=== PATIENT | female | born 1965 | race Caucasian/White ===

== ENCOUNTER → 2020-03-28 15:10 | Outpatient (CLI) | payer BC, OTHER, SELFPAY ==
--- NOTE | ~2020-03-28 | US_ITS ---
EXAMINATION: US transvaginal EXAM DATE: 03/28/2020 16:02 INDICATION: Possible, excessive bleeding. Left oophorectomy. TECHNIQUE: Pelvic transvaginal sonogram was performed. There are multiple grayscale and Doppler imag es available for interpretation. Comparison is made to prior examination from 04/03/2010. FINDINGS: There is been interval hysterectomy. The vaginal cuff is unremarkable. There is no free pel laura fluid. Right adnexa: The ovary measures 1.2 x 0.9 x 1.4 cm and is morphologically normal. Ovarian vascular f low confirmed. Left adnexa: The ovary is not identified. There is no adnexal mass. IMPRESSION: 1. Unremarkable right ovary. Reviewed, dictated and finalized at location A.
== END ==
PROVIDERS: PCP Family Medicine
DX: N95.1 Menopausal and female climacteric states (principal)
CPT/HCPCS: 76830

== ENCOUNTER → 2020-04-26 10:41 | Outpatient (CLI) | payer BC, OTHER, SELFPAY ==
--- NOTE | ~2020-04-26 | US_ITS ---
EXAMINATION: US soft tissue head and neck DATE: 04/26/2020 11:01 INDICATION: Localized swelling, mass and lump at the left neck TECHNIQUE: Multiple grayscale and Doppler ultrasound images of the region of concern at the left neck were obtained. COMPARISON: None FINDINGS: Lesion of concern corresponds to a 8 x 7 x 6 mm anechoic cyst with posterior acoustic enhancement. Th ere appears be a subtle hypoechoic tract extending from the cystic the skin surface which could be mo st consistent with an epidermoid cyst. No other abnormal masses or fluid collections identified. IMPRESSION: 1. 8 mm epidermoid cyst at the region of concern. Reviewed, dictated and finalized at location B.
== END ==
PROVIDERS: PCP Nurse Practitioner Family; Visit Provider Nurse Practitioner Family
DX: R22.1 Localized swelling, mass and lump, neck (principal)
CPT/HCPCS: 76536

== ENCOUNTER 2020-05-16 13:38 | Outpatient (CLI) | payer BC, OTHER, SELFPAY ==
[2020-05-16 14:22] LABS: Basophils Percent Auto 0.3 % (0.2-1.2); Eosinophils Absolute Auto 0.1 K/mm3 (0-0.3); Hematocrit 36.7 % (37.0-47.0); Hemoglobin 12.1 g/dL (12.0-15.0); Immature Granulocyte Absolute 0.01 K/mm3 (0.00-0.031); Immature Granulocyte Percent A 0.2 % (0-0.5); Lymphocytes Absolute Auto 1.67 K/mm3 (0.9-3.2); Lymphocytes Percent Auto 28.5 % (18.3-44.2); Mean Corpuscular Hemoglobin 32.8 pg (26-34); Mean Corpuscular Volume 99.5 fl (80-100); Monocytes Absolute Auto 0.5 K/mm3 (0.1-0.6); Monocytes Percent Auto 9.2 % (2.6-8.5); Neutrophils Absolute Auto 3.6 K/mm3 (1.3-6.7); Neutrophils Percent Auto 60.8 % (45.5-73.1); Platelet Count Result 247 k/mm3 (150-375); Red Blood Count 3.69 M/mm3 (4.2-5.4); Red Cell Distribution Width 12.3 % (11.5-14.5); White Blood Count 5.9 K/mm3 (4.5-10.0)
[2020-05-16 14:33] LABS: Anion Gap 4 mmol/L (8-16); Blood Urea Nitrogen 13 mg/dL (7-17); Calcium 9.2 mg/dL (8.4-10.2); Carbon Dioxide 28 mmol/L (22-30); Chloride 102 mmol/L (98-107); Estimated Glomerular Filt Rate > 60; Glucose 92 mg/dL (65-105); Potassium 4.3 mmol/L (3.4-5.0); Sodium 134 mmol/L (137-145)
[2020-05-16 15:24] LABS: Free T4 Free Thyroxine 0.85 ng/mL (0.78-2.19)
== END 2020-05-16 13:39 | disposition home or self-care (01) ==
LOC: ANHLAB 13:40
PROVIDERS: PCP Nurse Practitioner Family; Visit Provider Nurse Practitioner Family
DX: R00.2 Palpitations (principal)
CPT/HCPCS: 36415; 80048; 84439; 84443; 85025

== ENCOUNTER 2020-05-17 13:17 | Outpatient (CLI) | payer BC, OTHER, SELFPAY ==
--- NOTE | 2020-05-17 13:35 | ECG_ITS ---
Measurements Intervals [place] Rate: 48 P: 64 [place]: 151 QRS: 79 QRSD: 87 T: 59 QT: 452 QTc: 406 Interpretive Statements SINUS BRADYCARDIA WITH SINUS ARRHYTHMIA ABNORMAL ECG Electronically Signed On 05-17-2020 20:12:32 CDT by Rao Owens D.O.
== END 2020-05-17 13:18 | disposition home or self-care (01) ==
PROVIDERS: PCP Nurse Practitioner Family; Visit Provider Nurse Practitioner Family
DX: R00.2 Palpitations (principal); R94.31 Abnormal electrocardiogram [ECG] [EKG]
CPT/HCPCS: 93005

== ENCOUNTER → 2020-05-24 12:49 | Outpatient (CLI) | payer BC, OTHER, SELFPAY ==
--- NOTE | ~2020-05-24 | US_ITS ---
EXAMINATION: US thyroid DATE: 05/24/2020 13:04 INDICATION: Localized swelling, mass, and lump, neck. TECHNIQUE: Multiple ultrasound images of the thyroid were obtained. COMPARISON: None. FINDINGS: The right thyroid lobe measures 5.8 x 1.5 x 2.0 cm. The left thyroid lobe measures 5.5 x 1.1 x 1.6 c m. There is normal echotexture and echogenicity throughout the thyroid gland. No discrete nodules id entified. Normal vascular flow is present. IMPRESSION: 1. Normal thyroid. Reviewed, dictated and finalized at location A. IMPRESSION: 1. Normal thyroid.
== END ==
PROVIDERS: Visit Provider Nurse Practitioner Family
DX: R22.1 Localized swelling, mass and lump, neck (principal)
CPT/HCPCS: 76536

== ENCOUNTER 2020-05-29 08:42 | Outpatient (CLI) | payer BC, OTHER, SELFPAY ==
--- NOTE | 2020-05-31 12:05 | WPDHOLTEREM ---
Holter/Event Monitor Holter/Event Monitor Date of procedure: 05/29/20 Procedure Type: 24 hour holter monitor Indications: Abnormal EKG Conclusion: 1. 24 hour holter monitor on 05/29/20. 2. Underlying rhythm is sinus rhythm. HR range 42-138 bpm; average HR 72 bpm. 3. There are 1,043 premature supraventricular complexes, 3 supraventricular couplets, and 1 supraventricular triplet, 3 supraventricular bigeminy and 15 supraventricular trigeminy. No supraventricular tachycardia. 4. There are 432 premature ventricular complexes, 2 ventricular couplets, 2,107 ventricular bigeminy. No ventricular tachycardia. 5. No sinoatrial or atrioventricular blocks. No significant pauses greater than 2 seconds. 6. No symptoms available for correlation.
== END 2020-05-29 08:43 | disposition home or self-care (01) ==
PROVIDERS: PCP Nurse Practitioner Family; Visit Provider Physician Assistant Medical
DX: R94.31 Abnormal electrocardiogram [ECG] [EKG] (principal); R00.2 Palpitations; I49.3 Ventricular premature depolarization; R00.8 Other abnormalities of heart beat
CPT/HCPCS: 93225; 93226

== ENCOUNTER 2020-06-12 13:45 | Outpatient (CLI) | payer BC, OTHER, SELFPAY ==
--- NOTE | ~2020-06-12 | DEXA_ITS ---
Bone Density Report Name: Noemi Juárez Age: 54 Sex: Female Ethnicity: White Date of : 1965 Indication: osteopenia; monitoring treatment; prior fracture; hysterectomy; Referring Provider: Kamala Steiner Study: Bone densitometry was performed. Exam Date: June 12, 2020 Accession number: [id number] Bone Density: Region BMD T-score Z-score Classification AP Spine (L1, L2, L3) 0.867 -1.4 -0.5 Osteopenia Femoral Neck (Left) 0.685 -1.5 -0.6 Osteopenia Total Hip (Left) 0.849 -0.8 -0.2 Normal Total Hip Bilateral Avg 0.844 -0.8 -0.3 Normal Femoral Neck (Right) 0.673 -1.6 -0.7 Osteopenia Total Hip (Right) 0.838 -0.9 -0.3 Normal World Health Organization criteria for BMD impression classify patients as: Normal (T-score at or above -1.0), Osteopenia (T-score between -1.0 and -2.5), or Osteoporosis (T-score at or below -2.5). 10-year Fracture Risk: FRAX not reported because: Treated for osteoporosis Previous Exams: Region Exam Age BMD T-score BMD Change BMD Change Date g/cm2 vs Baseline vs Previous AP Spine(L1, L2, L3) 06/12/2020 54 0.867 -1.4 0.029(3.5%)# 0.061(7.6%)* 06/16/2018 52 0.806 -1.9 -0.032(-3.8%)# -0.026(-3.1%)* 06/05/2016 50 0.831 -1.7 -0.006(-0.7%)# -0.009(-1.0%) 05/31/2014 48 0.840 -1.6 0.003(0.3%)# 0.003(0.3%)# 05/19/2012 46 0.837 -1.6 Total Hip(Left) 06/12/2020 54 0.849 -0.8 0.026(3.1%)# -0.031(-3.5%)* 06/16/2018 52 0.880 -0.5 0.057(6.9%)# 0.067(8.2%)* 06/05/2016 50 0.813 -1.1 -0.010(-1.2%)# -0.040(-4.7%)* 05/31/2014 48 0.853 -0.7 0.030(3.6%)# 0.030(3.6%)# 05/19/2012 46 0.823 -1.0 Total Hip(Right) 06/12/2020 54 0.838 -0.9 0.008(0.9%)# 0.017(2.0%) 06/16/2018 52 0.821 -1.0 -0.009(-1.1%)# 0.032(4.1%)* 06/05/2016 50 0.789 -1.3 -0.041(-4.9%)# -0.032(-3.9%)* 05/31/2014 48 0.821 -1.0 -0.009(-1.1%)# -0.009(-1.1%)# 05/19/2012 46 0.830 -0.9 *Denotes significance at 95% confidence level, LSC for AP Spine = 0.022 g/cm2, LSC for Total Hip = 0.027 g/cm2 Clinical Information Provided by Patient: Has had a low trauma fracture Is being treated for osteoporosis Has used the following medications: Reclast (i.e. zoledronate), Prolia (i.e. denosumab), Vitamin D, Calcium, DEPO PROVERA Has the following medical conditions: Hysterectomy Patient maximum height was 70 Menopause Age: 49 Does not regularly consume dairy products Onset of menses at age 15 Number of children 0 Missed period for more than 6 mon
--- NOTE | ~2020-06-12 | MM_ITS ---
EXAMINATION: MM screening ross BI w trevor HISTORY: Screening mammogram TECHNIQUE: Craniocaudal and mediolateral oblique 3-D tomosynthesis images were obtained and synthetic 2-D images were generated. CAD analysis was submitted and interpreted. COMPARISON: 06/11/2019, 06/16/2018, 06/07/2017 bilateral digital screening mammogram examinations BREAST PARENCHYMAL COMPOSITION: The breasts are heterogeneously dense, which may obscure small masses . FINDINGS: Scattered bilateral benign calcifications are again noted. There is no evidence of suspicio us mass, calcification, or architectural distortion to suggest malignancy in either breast. There has been no suspicious interval change. IMPRESSION: 1. No mammographic evidence of malignancy. 2. Recommend routine screening mammography in one year. BI-RADS Category 2: Benign finding(s). Reviewed, dictated and finalized at location A.
== END 2020-06-12 13:46 | disposition home or self-care (01) ==
LOC: ANHIMG 13:47
PROVIDERS: PCP Nurse Practitioner Family; Visit Provider Nurse Practitioner Family
DX: Z12.31 Encounter for screening mammogram for malignant neoplasm of breast (principal); Z78.0 Asymptomatic menopausal state; M85.88 Other specified disorders of bone density and structure, other site; M85.852 Other specified disorders of bone density and structure, left thigh; M85.851 Other specified disorders of bone density and structure, right thigh
CPT/HCPCS: 77063; 77067; 77080

== ENCOUNTER 2020-07-04 07:22 | Outpatient (CLI) | payer BC, OTHER, SELFPAY ==
--- NOTE | 2020-07-04 07:48 | ECHO_ITS ---
Patient Info Name: Noemi Juárez Age: 54 years : 1965 Gender: Female Ht: 69 in Wt: 134 lbs BSA: 1.71 m2 HR: 74 bpm BP: 113 / 65 mmHg Technical Quality: Good Exam Date: 07/04/2020 7:56 AM Exam Location: [facility] Patient Status: Outpatient Admit Date: 07/04/2020 Staff Ordering Physician: Rao Owens DO Supervisor Decorating: Jose Martin Mcarthur RDCS, RT Attending Provider: Rao Owens DO Referring Physician: Roman THOMPSON; Exam Type: CA echo doppler color flow Study Info Indications R00.2 - Palpitations Complete two-dimensional, color flow and Doppler transthoracic echocardiogram is performed. Strain analysis performed. Summary 1. Complete two-dimensional, color flow and Doppler transthoracic echocardiogram is performed. 2. Left ventricular chamber dimension is normal. 3. Left ventricular systolic function is normal, estimated at 55-60%. 4. The left ventricular diastolic function is abnormal. 5. E/e' 12 is mildly elevated. 6. Global longitudinal strain is normal at -22.0%. 7. There is mild mitral valve regurgitation. 8. There is mild tricuspid valve regurgitation. 9. No pulmonary hypertension, estimated pulmonary arterial systolic pressure is 26 mmHg. Left Ventricle E/e' 12 is mildly elevated. Global longitudinal strain is normal at -22.0%. Left ventricular chamber dimension is normal. Left ventricular systolic function is normal, estimated at 55-60%. The left ventricular diastolic function is abnormal. Right Ventricle Right ventricular chamber dimension is normal. Right ventricular systolic function is normal. Left Atria Left atrial chamber dimension is normal. Right Atria Right atrial chamber dimension is normal. Aortic Valve The aortic valve is trileaflet. There is no aortic valve stenosis. There is no aortic valve regurgitation. Pulmonic Valve There is no pulmonic regurgitation. Mitral Valve There is no mitral valve stenosis. There is mild mitral valve regurgitation. Tricuspid Valve There is mild tricuspid valve regurgitation. No pulmonary hypertension, estimated pulmonary arterial systolic pressure is 26 mmHg. Pericardium/Pleural There is no pericardial effusion. Inferior Vena Cava Normal inferior vena cava with >50% collapse upon inspiration consistent with normal right atrial pressure, 5 mmHg. Aorta The aortic root size at the sinus of Valsalva is normal. Left Ventricular Outflow Tract Name Value Normal LVOT 2D LVOT Diameter 2.0 cm LVOT Doppler LVOT Peak Gradient 4 mmHg LVOT Mean Gradient 2 mmHg LVOT VTI 25 cm LVOT VTI/AV VTI Ratio 0.9 LVOT Stroke Volume 81 ml LVOT CO 3.2 l/min LVOT CI 1.8 l/min/m2 Mitral Valve Name Value Normal MV Doppler
== END 2020-07-04 07:23 | disposition home or self-care (01) ==
PROVIDERS: PCP Nurse Practitioner Family; Visit Provider Internal Medicine Cardiovascular Disease
DX: R00.2 Palpitations (principal); I34.0 Nonrheumatic mitral (valve) insufficiency; I36.1 Nonrheumatic tricuspid (valve) insufficiency
CPT/HCPCS: 93306

== ENCOUNTER → 2020-08-07 14:40 | Outpatient (CLI) | payer BC, OTHER, SELFPAY ==
--- NOTE | ~2020-08-07 | CT_ITS ---
EXAMINATION: CT sinus wo con DATE: 08/07/2020 14:55 INDICATION: Acute recurrent sinusitis TECHNIQUE: Computed tomography (CT) of the paranasal sinuses was performed without intravenous contra st. The dose-length product was 279.12 mGy-cm. Automated exposure control and iterative reconstructio n technique were employed. COMPARISON: None FINDINGS: No significant mucosal thickening. Mild bowing of the nasal septum to the left. Ostiomeatal units are patent. No air-fluid levels. No significant mucoperiosteal reaction. Mastoids are pneumati zed. IMPRESSION: 1. No significant paranasal sinus disease. Reviewed, dictated and finalized at location A. ANIC
== END ==
PROVIDERS: PCP Nurse Practitioner Family; Visit Provider Nurse Practitioner Family
DX: J01.90 Acute sinusitis, unspecified (principal)
CPT/HCPCS: 70486

== ENCOUNTER → 2021-01-09 10:40 | Outpatient (REF) | payer BC, OTHER, SELFPAY | LOC: ANHLAB 10:40 | PROVIDERS: PCP Family Medicine; Visit Provider Nurse Practitioner | DX: L72.0 Epidermal cyst (principal) | CPT/HCPCS: 88304 ==

== ENCOUNTER → 2021-02-10 15:49 | Outpatient (CLI) | payer BC, OTHER, SELFPAY ==
--- NOTE | ~2021-02-10 | XR_ITS ---
XR chest 2V DATE: 02/10/2021 16:06 INDICATION: Cough TECHNIQUE: 2 views COMPARISON: 12/17/2014 2 view chest FINDINGS: Bilateral hyperinflation. There is relative flattening the diaphragm and increased retroste rnal airspace. The findings suggest obstructive airways disease/COPD. Clinical correlation is advised . No pulmonary infiltrate or consolidation, pleural effusion or pulmonary vascular congestion or pneumo thorax. Normal heart size. No hilar or mediastinal enlargement. IMPRESSION: Bilateral hyperinflation suggesting obstructive airways disease No active cardiopulmonary disease Reviewed, dictated and finalized at location A.
== END ==
PROVIDERS: PCP Nurse Practitioner Family; Visit Provider Nurse Practitioner Family
DX: R05 Cough (principal); R91.8 Other nonspecific abnormal finding of lung field
CPT/HCPCS: 71046

== ENCOUNTER 2021-03-11 08:30 | Outpatient (CLI) | payer BC, OTHER, SELFPAY ==
--- NOTE | 2021-03-11 13:01 | WPDPFTINT ---
PFT Procedure Performed PFT Procedure Performed Spirometry with Pre/Post Bronchodilator Plethysmography (Lung Vol) Diffusing Cap (DLCO) Flow Vol Loop PFT Interpretation This is a pulmonary function test with pre and post-bronchodilator spirometry, plethysmography and diffusing capacity. The test was performed and results interpreted in accordance with the 2019 and 2005 ATS/ERS Task Force guidelines respectively using the Global Lung Function Initiative-2012 reference equations. Patient demonstrated good effort and cooperation. Reproducibility criteria were met. The quality of the pre bronchodilator spirometry maneuver was Grade A and post bronchodilator spirometry maneuver was Grade A. Findings: Spirometry: the contour of the inspiratory and expiratory flow tracing are normal. The pre bronchodilator FVC is 4.23 L, 102% predicted. The pre bronchodilator FEV1 is 2.97, 91% predicted. The FEV1: FVC ratio 70%. The post bronchodilator FVC is 4.32 L, representing a 2% increase. The post bronchodilator FEV1 is 3.20 L, representing an 8% increase. Plethysmography: The total lung capacity is 6.42 L, 108% predicted. The functional residual capacity is 4.13 L, 122% predicted. The residual volume is 2.19 L, 102% predicted. Diffusing capacity: The absolute diffusion capacity is 21.8, 88% predicted. The diffusing capacity corrected for alveolar volume is 3.88, 91% predicted. Impression: The spirometry is normal without evidence of an obstructive abnormality. There is no significant improvement after inhaling a single dose of albuterol. The lung volumes are normal. The diffusing capacity is normal. There are no prior studies for comparison
== END 2021-03-11 08:31 | disposition home or self-care (01) ==
PROVIDERS: PCP Nurse Practitioner Family; Visit Provider Nurse Practitioner Family
DX: R05 Cough (principal); R09.89 Other specified symptoms and signs involving the circulatory and respiratory systems
CPT/HCPCS: 94060; 94726; 94729

== ENCOUNTER 2021-04-11 05:19 | Day surgery (SDC) | payer BC, OTHER, SELFPAY ==
[2021-04-04 14:51] VITALS: BMI 17.9
--- NOTE | 2021-04-09 09:29 | PM.IMHP ---
H&P: HPI History of Present Illness Date/Time: 04/09/21 09:29 patient presents for planned surgical procedures. No change in symptoms no change in medical history. Chief Complaint: chronic sinusitis, recurrent sinusitis, nasal obstruction, nasal congestion septal deviation inferior turbinate hypertrophy Review of Systems Constitutional: Constitutional: Denies fatigue, Denies fever(s) and Denies lethargy Eyes: Eyes: Denies blurry vision and Denies change in vision ENT: Reports as per HPI Cardiovascular: Cardiovascular: Denies chest pain Respiratory: Respiratory: Denies cough Endocrine: Endocrine: Denies fatigue Hematologic/Lymphatic: Hematologic/Lymphatic: Denies easy bleeding, Denies easy bruising and Denies lymphadenopathy Allergic/Immunologic: Allergic/Immunologic: Denies seasonal rhinorrhea [facility] Past Medical History Medical History Body mass index (BMI) less than 20 COVID-19 Osteopenia Surgical History Surgical History H/O knee surgery H/O LEEP H/O removal of cyst back of neck H/O: hysterectomy History of colposcopy Hx of sinus surgery Family History Family History Father Family history of coronary artery disease Family history of heart disease in male family member before age 55 Mother Family history of thyroid disease Family history of lymphoma Sibling Family history of irritable bowel syndrome Social History Social History Smoking status: Never smoker Second hand tobacco smoke exposure: No Alcohol intake: current Drinks per week: 1 Substance use: never Substance use type: does not use Living arrangements: with family 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 Gender identity (if verbalized by the patient): Female Spiritual care concerns: No Meds Home Medications and Allergies Home Medications Medication Instructions Recorded Confirmed Type cholecalciferol (vitamin D3) 1,250 1,250 mcg PO QMWF 04/23/20 04/04/21 History mcg (50,000 unit) capsule estradiol 1 mg tablet 1 mg PO DAILY 04/23/20 04/04/21 History multivitamin,pw-gejq-qzqtmlwi 1 tablet PO DAILY 04/23/20 04/04/21 History omega-3 fatty acids 500 mg capsule 500 mg PO DAILY 04/23/20 04/04/21 History thyroid (pork) 8 mg capsule 9 mg PO DAILY cap 05/16/20 04/04/21 History vitamin B complex 1 tablet PO DAILY 08/08/20 04/04/21 History fluticasone propionate 50 1 spray INTRANASAL BID #9.9 ml 12/17/20 04/04/21 Rx mcg/actuation nasal spray,suspension azelastine 137 mcg (0.1 %) nasal 1 spray INTRANASAL Q12H #30 ml 01/14/21 04/04/21 Rx spray aerosol conjugated estrogens 0.625 mg/gram 0.625 mg VAGINAL 2XW #30 g 01/17/21 04/04/21 Rx vaginal cream albuterol sulfate 90 mcg/actuation 2 inh INHALATION Q4H PRN #8.5 g 02/10/21 04/04/21 Rx aerosol inhaler Allergies Allergy/AdvReac Type Severity Reaction Status Date / Time No Known Allergies Allergy Verified 04/04/21 14:51 Exam Const: General: cooperative, healthy appearing, comfortable, well developed and alert HENMT: Head: normal to inspection, normocephalic and atraumatic Ears: hearing grossly normal bilaterally, external ears normal, TM's normal bilaterally and EAC's normal General nose exam: Normal external nose present, Normal nares present and Other nasal findings present ( Septal deviation inferior turbinate hypertrophy) Face and sinus: normal facial exam Mouth: Yes Normal oral and palatal mucosa present, Yes lip normal, Yes tongue normal, Yes oropharynx normal and Yes moist mucous membranes Teeth and gingiva: dentition normal and gingiva normal Throat: posterior oropharynx normal, tonsils normal and uvula midline Eyes: General: appearance normal, both eyes and all related stru
[2021-04-11] VITALS (7 sets, daily range): BP systolic 93–132; BP diastolic 60–68; PULSE 40–70; RESP 16–20; TEMP 36.3; O2SAT 100; BMI 17.9
--- NOTE | 2021-04-11 07:06 | WPDHPUPDATE1 ---
History and Physical Update Update Date/Time: 04/11/21 07:06 History and Physical has been reviewed, including an updated exam of the patient. There are NO changes in the patient's condition. Risks, benefits, and alternatives have been discussed and questions answered. Patient agrees to proceed with procedure.
[2021-04-11] MEDS: LACTATED RINGERS 1,000 ML 30 ML IV CONT ×2 (08:00→10:03)
[2021-04-11] MEDS: ACETAMINOPHEN 500 MG TABLET 1000 MG PO (08:00)
--- NOTE | 2021-04-11 08:23 | WPDANESEPPF ---
Anes - Initial Pre Proc Eval Procedure: Operation Date: 04/11/21 09:00 Proposed Procedures p Image Guided Bilateral Endoscopic Maxillary Antrostomy,Bilateral Inferior Turbinectomy, - Jesse Chris MD s Septoplasty - Jesse Chris MD Date/Time: 04/11/21 08:23 Surgeon: Jesse Chris MD Pre Op Diagnosis: chronic sinusitis Patient Data Age: 55 Gender: F Height: 1.78 m Weight: 56.8 kg Allergies Allergy/AdvReac Type Severity Reaction Status Date / Time No Known Allergies Allergy Verified 04/11/21 08:17 Home Medications Medication Instructions Recorded Confirmed Type cholecalciferol (vitamin D3) 1,250 1,250 mcg PO QMWF 04/23/20 04/04/21 History mcg (50,000 unit) capsule estradiol 1 mg tablet 1 mg PO DAILY 04/23/20 04/04/21 History multivitamin,fg-ivza-qjdbrxkx 1 tablet PO DAILY 04/23/20 04/04/21 History omega-3 fatty acids 500 mg capsule 500 mg PO DAILY 04/23/20 04/04/21 History thyroid (pork) 8 mg capsule 9 mg PO DAILY cap 05/16/20 04/04/21 History vitamin B complex 1 tablet PO DAILY 08/08/20 04/04/21 History fluticasone propionate 50 1 spray INTRANASAL BID #9.9 ml 12/17/20 04/04/21 Rx mcg/actuation nasal spray,suspension azelastine 137 mcg (0.1 %) nasal 1 spray INTRANASAL Q12H #30 ml 01/14/21 04/04/21 Rx spray aerosol conjugated estrogens 0.625 mg/gram 0.625 mg VAGINAL 2XW #30 g 01/17/21 04/04/21 Rx vaginal cream albuterol sulfate 90 mcg/actuation 2 inh INHALATION Q4H PRN #8.5 g 02/10/21 04/04/21 Rx aerosol inhaler Patient hx anesthesia problems: none Family hx anesthesia problems: none [facility] Past Medical History Medical History (Updated 04/11/21 @ 08:23 by Marcial Hagen MD) Body mass index (BMI) less than 20 COVID-19 Hypothyroidism Osteopenia Surgical History Surgical History H/O knee surgery H/O LEEP H/O removal of cyst back of neck H/O: hysterectomy History of colposcopy Hx of sinus surgery Family History Family History Father Family history of coronary artery disease Family history of heart disease in male family member before age 55 Mother Family history of thyroid disease Family history of lymphoma Sibling Family history of irritable bowel syndrome Social History Social History Smoking status: Never smoker Second hand tobacco smoke exposure: No Alcohol intake: current Drinks per week: 1 Substance use: never Substance use type: does not use Living arrangements: with family 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 Questions were solicited and answers provided to the satisfaction of the patient/family/POA.
[2021-04-11] MEDS: ceFAZolin 2 GM/D5W 50 ML 2 GM/50 ML BAG IVPB (08:48)
[2021-04-11] MEDS: OXYMETAZOLINE HCL 0.05% NAS 15 ML BTL (*BKC) 1 SPRAY NASAL (09:10)
--- NOTE | 2021-04-11 10:15 | W.PM.PROC2 ---
Procedure Note - Detailed Date of Procedure 04/11/21 Pre-op Diagnosis chronic sinusitis , nasal obstruction, recirculation phenomenon, septal deviation, inferior turbinate hypertrophy Post-op Diagnosis same Procedure Performed 1. Endoscopic bilateral maxillary antrostomies 2. Endoscopic assisted septoplasty 3. Inferior turbinate reduction with outfracture, submucosal Surgeon Jesse Chris MD Placement Coordinator none Anesthesia general Indications see above Findings septal deviation inferior turbinate hypertrophy bilateral maxillary antrostomy not connected to natural os Description of Procedure the patient was correctly identified and consent was verified in the preoperative holding area. The patient was then brought to the operating room and a time-out performed. General anesthesia was induced and endotracheal tube was secured the patient's airway and taped to the left lower lip. The patient was then prepped and draped for the aforementioned procedure. Afrin-soaked pledgets were placed for 5 minutes the bilateral nasal passages then removed. Under endoscopic guided the bilateral nasal passages reviewed with the aforementioned findings noted. 10 cc 1% lidocaine with 1 100,000 parts epinephrine is injected into the bilateral nasal septum in the submucoperichondrial plane. It was also injected into the anterior portions of the inferior turbinates. A backbiter was utilized to remove the uncinate process on the bilateral previous maxillary antrostomies. Micro debrider as well as straight through cut and double ball tip probe were utilized to ensure that the connected to the natural os. A 70 degree scope was also utilized to ensure this. The left anterior portion of the middle turbinate was trimmed as it had polypoid disease tissue on it. Suction Bovie electrocautery cautery was utilized to ensure hemostasis on the left middle turbinate. A Gagandeep type incision was then performed on the left anterior nasal septum bilateral mucoperichondrial flaps were elevated and the deviated nasal septum was removed with a combination of 15 blade Kalpesh forceps and Ayaan Lomas forceps. Hemostasis was excellent. The anterior inferior turbinates were entered with a microdebrider with inferior turbinate blade this procedure was performed bilaterally. There were debrided in the sub mucoperichondrial sub mucosal plane. The bilateral inferior turbinates had polypoid tissue posteriorly this was debrided and cauterized with suction Bovie electrocautery at a setting of 15. The bilateral inferior turbinates were then outfractured. Hemostasis was excellent. The [place] incision on the nasal septum was closed with 3 interrupted 5 0 fast gut sutures. Curtis splints were placed under endoscopic guidance and ensured to lie lateral to the middle turbinates. These were sutured anteriorly using a 3-0 mattressed nylon suture. Care the patient was turned over to Anesthesiology. I performed all dictated portions of this procedure. Blood loss approximately 5 cc. There were no complications. Implants Curtis splints Estimated Blood Loss 5 Drains No Packing No Pathology none sent Complications No immediate complications Condition stable Disposition PACU
== END 2021-04-11 12:15 | disposition home or self-care (01) ==
PROVIDERS: PCP Nurse Practitioner Family; Visit Provider Otolaryngology
PROC: (CPT 30520; principal; 2021-04-11 09:00)
PROC: (CPT 30520; 2021-04-11 09:00)
DX: J32.9 Chronic sinusitis, unspecified (principal); J34.89 Other specified disorders of nose and nasal sinuses; J34.2 Deviated nasal septum; J34.3 Hypertrophy of nasal turbinates; E03.9 Hypothyroidism, unspecified; Z86.16 Personal history of COVID-19
CPT/HCPCS: 30520; 31256; 30140; A9270; J0330; J0690; J2250; J2270; J2405; J2704; J7120

== ENCOUNTER 2021-06-16 10:30 | Outpatient (CLI) | payer BC, OTHER, SELFPAY ==
--- NOTE | ~2021-06-16 | MM_ITS ---
EXAMINATION: MM screening ross BI w trevor HISTORY: Screening mammogram TECHNIQUE: Craniocaudal and mediolateral oblique 3-D tomosynthesis images were obtained and synthetic 2-D images were generated. CAD analysis was submitted and interpreted. COMPARISON: 06/12/2020, 06/21/2019, 06/16/2018 bilateral digital screening mammogram examinations BREAST PARENCHYMAL COMPOSITION: The breasts are extremely dense, which lowers the sensitivity of mamm ography. FINDINGS: Numerous scattered bilateral benign calcifications are again noted. There is no evidence of suspicious mass, calcification, or architectural distortion to suggest malignancy in either breast. There has been no suspicious interval change. IMPRESSION: 1. No mammographic evidence of malignancy. 2. Recommend routine screening mammography in one year. BI-RADS Category 2: Benign finding(s). Reviewed, dictated and finalized at location A.
== END 2021-06-16 10:31 | disposition home or self-care (01) ==
LOC: ANHIMG 10:30
PROVIDERS: PCP Nurse Practitioner Family; Visit Provider Obstetrics & Gynecology
DX: Z12.31 Encounter for screening mammogram for malignant neoplasm of breast (principal)
CPT/HCPCS: 77063; 77067

== ENCOUNTER → 2021-08-04 15:54 | Outpatient (CLI) | payer BC, OTHER, SELFPAY ==
--- NOTE | ~2021-08-04 | US_ITS ---
EXAMINATION: US soft tissue groin RT EXAM DATE: 08/04/2021 16:08 INDICATION: R19.09 - Other intra-abdominal and pelvic swelling, mass ... . TECHNIQUE: Multiple grayscale and Doppler images of the right inguinal symptomatic region were obtain ed (by a technologist who performed the scan) and subsequently reviewed. There is no prior study for comparison. FINDINGS: Scanning in the right inguinal symptomatic area of palpable abnormality demonstrates a few lymph node s, largest measuring 9 x millimeters mm, within normal size less. These also have expected fatty shad . IMPRESSION: 1. Unremarkable ultrasound exam. Reviewed, dictated and finalized at location B. A PRODUCTION OPERATOR
== END ==
PROVIDERS: PCP Family Medicine; Visit Provider Nurse Practitioner Family
DX: R19.09 Other intra-abdominal and pelvic swelling, mass and lump (principal)
CPT/HCPCS: 76882

== ENCOUNTER → 2021-08-15 10:57 | Outpatient (CLI) | payer BC, OTHER, SELFPAY ==
--- NOTE | ~2021-08-15 | MR_ITS ---
EXAMINATION: MR brain/brain stem wo con DATE: 08/15/2021 11:38 INDICATION: Dizziness and giddiness. TECHNIQUE: Magnetic resonance imaging (MRI) of the brain and brainstem was performed without intraven ous contrast. Sequences included sagittal and axial T1-weighted FSE, axial diffusion-weighted FS EPI, axial T2*-weighted GRE, axial T2-weighted FLAIR Propeller, and axial T2-weighted Propeller. Apparent diffusion coefficient (ADC) maps were created. COMPARISON: None. FINDINGS: There is no intracranial hemorrhage, acute infarction, or abnormal intracranial mass lesion . The ventricles are normal in size. There is mild mucosal thickening in the ethmoid sinuses. The orb its are normal. The mastoid air cells are normal. IMPRESSION: 1. Normal brain. Reviewed, dictated and finalized at location A. S PLANNING ANALYST IMPRESSION: 1. Normal brain.
== END ==
PROVIDERS: PCP Nurse Practitioner Family; Visit Provider Nurse Practitioner Family
DX: R42 Dizziness and giddiness (principal)
CPT/HCPCS: 70551

== ENCOUNTER → 2021-09-27 11:23 | Outpatient (CLI) | payer BC, OTHER, SELFPAY ==
--- NOTE | ~2021-09-27 | XR_ITS ---
EXAMINATION: XR_CERV2-3V_CR EXAM DATE: 09/27/2021 11:33 INDICATION: No known recent injury provided at this time. Pain of the cervical spine. TECHNIQUE: Cervical spine frontal, lateral, lateral swimmers, and open-mouth odontoid projections. There is no prior study for comparison. FINDINGS: There is moderate loss of the C5-6 disc height, mild at the 2 contiguous levels. There is mild to moderate lower cervical uncovertebral joint arthropathy and diffuse cervical facet arthropath y. The odontoid process is intact. The lateral masses of C1 line up with C2. Prevertebral soft tissu e and pre-dens space are within normal limits. Paraspinal soft tissue is unremarkable. IMPRESSION: Overall mild to moderate cervical spondylosis. Reviewed, dictated and finalized at location G. LLITE TELEVISION INSTALLER
== END ==
PROVIDERS: Visit Provider Nurse Practitioner Family
DX: M54.2 Cervicalgia (principal); M47.812 Spondylosis without myelopathy or radiculopathy, cervical region
CPT/HCPCS: 72040

== ENCOUNTER 2021-12-31 10:14 | Outpatient (CLI) | payer BC, OTHER, SELFPAY ==
--- NOTE | 2021-12-31 11:15 | NEURO_ITS ---
Impression: # Complains of dizziness; Question of neuropathy. # Normal nerve conduction study. # Normal needle/EMG exam with no myotonia or denervation potentials. # Clinical correlation recommended. Nerve Conduction Studies Anti Sensory Summary Table Stim Site NR Peak (ms) P-T Amp (?V) Site1 Site2 Delta-P (ms) Dist (cm) Dusty (m/s) Left Median Anti Sensory (2-3nd Digit) Wrist 3.4 84.1 Wrist 2-3nd Digit 3.4 14.0 41 Wrist 3.4 80.1 Wrist 2-3nd Digit 3.4 14.0 41 Right Median Anti Sensory (2-3nd Digit) Wrist 3.4 44.1 Wrist 2-3nd Digit 3.4 14.0 41 Wrist 3.3 58.2 Wrist 2-3nd Digit 3.4 14.0 41 Left Radial Anti Sensory (Base 1st Digit) Wrist 2.3 42.1 Wrist Base 1st Digit 2.3 0.0 Right Radial Anti Sensory (Base 1st Digit) Wrist 2.7 22.5 Wrist Base 1st Digit 2.7 0.0 Left Sup Fibular Anti Sensory (Ant Lat Mall) NO RESPONSE 14 cm NR 14 cm Ant Lat Mall 16.0 Right Sup Fibular Anti Sensory (Ant Lat Mall) 14 cm 3.6 9.3 14 cm Ant Lat Mall 3.6 16.0 44 Left Sural Anti Sensory (Lat Mall) Calf 3.8 19.8 Calf Lat Mall 3.8 16.0 42 Right Sural Anti Sensory (Lat Mall) Calf 3.9 10.4 Calf Lat Mall 3.9 16.0 41 Left Ulnar Anti Sensory (5th Digit) Wrist 2.9 58.6 Wrist 5th Digit 2.9 14.0 48 Right Ulnar Anti Sensory (5th Digit) Wrist 3.1 70.1 Wrist 5th Digit 3.1 14.0 45 Motor Summary Table Stim Site NR Onset (ms) O-P Amp (mV) Site1 Site2 Delta-0 (ms) Dist (cm) Dusty (m/s) Left Median Motor (Abd Poll Brev) Wrist 2.8 12.0 Elbow Wrist 5.5 30.0 55 Elbow 8.3 11.0 Right Median Motor (Abd Poll Brev) Wrist 3.3 7.0 Elbow Wrist 5.1 27.0 53 Elbow 8.4 8.1 Left Peroneal Motor (Vastus Med) Ankle 4.4 2.9 Popit Ankle 9.9 44.0 44 Popit 14.3 2.2 Right Peroneal Motor (Vastus Med) Ankle 3.8 3.0 Popit Ankle 9.2 41.0 45 Popit 13.0 1.4 Left Tibial Motor (Abd Anderson Brev) Ankle 4.4 2.7 Knee Ankle 9.5 45.0 47 Knee 13.9 1.3 Right Tibial Motor (Abd Anderson Brev) Ankle 4.2 6.0 Knee Ankle 9.6 43.0 45 Knee 13.8 2.4 Left Ulnar Motor (Abd Dig Minimi) Wrist 3.1 6.4 A Elbow Wrist 5.2 29.0 56 A Elbow 8.3 5.1 Right Ulnar Motor (Abd Dig Minimi) Wrist 2.9 7.3 A Elbow Wrist 5.0 28.0 56 A Elbow 7.9 6.4 F Wave Studies NR F-Lat (ms) L-R F-Lat (ms) Left Median (Mrkrs) (Abd Poll Brev) 27.89 0.72 Right Median (Mrkrs) (Abd Poll Brev) 27.17 0.72 Left Peroneal (Mrkrs) (EDB) 57.41 0.23 Right Peroneal (Mrkrs) (EDB) 57.17 0.23 Left Tibial (Mrkrs) (Abd Hallucis) 58.17 0.54 Right Tibial (Mrkrs) (Abd Hallucis) 57.63 0.54 Left Ulnar (Mrkrs) (Abd Dig Min) 28.10 0.19 Right Ulnar (Mrkrs) (Abd Dig Min) 27.91 0.19 EMG Side Muscle Nerve Root Ins Act Fibs Amp Dur Recrt Comment Right 1stDorInt Ulnar C8-T1 Nml Nml Nml Nml Nml Right Ext Indicis Radial (Post Int) C7-8 Nml Nml Nml Nml Nml Right Ext Digitorum Radial (Post Int) C7-8 Nml Nml Nml Nml Nml Right BrachioRad Radial C5-6 Nml Nml Nml Nml Nml Right PronatorTeres Median C6-7 Nml Nml Nml Nml Nml Right Abd Poll Brev Median C8-T1 Nml Nml Nml Nml Nml Right AntTibialis Dp Br Fibular L4-5 Nml Nml Nml Nml Nml Right Gastroc Tibial
== END 2021-12-31 10:15 | disposition home or self-care (01) ==
LOC: ANHNEURO 10:15
PROVIDERS: PCP Family Medicine; Visit Provider Psychiatry & Neurology Neurology
DX: R42 Dizziness and giddiness (principal); R26.89 Other abnormalities of gait and mobility
CPT/HCPCS: 95886; 95913

== ENCOUNTER → 2022-06-03 10:21 | Outpatient (CLI) | payer BC, OTHER, SELFPAY ==
--- NOTE | ~2022-06-03 | CT_ITS ---
EXAMINATION: CTA brain carotid DATE: 06/03/2022 11:11 INDICATION: Dizziness. TECHNIQUE: Computed tomographic angiography (CTA) of the head was performed without and with 100 mL O mnipaque-350 intravenous contrast. CTA of the neck was performed with intravenous contrast. Automated exposure control and iterative reconstruction technique were employed. The dose-length product was 1 366.07 mGy-cm. Maximum intensity projection and volume rendered 3D-reconstructions were created by violet gay technologist on a separate workstation. COMPARISON: Brain MRI 08/15/2021 FINDINGS: HEAD CTA: There is no intracranial hemorrhage, acute infarction, or abnormal intracranial mass lesion . The ventricles are normal in size. There is mild mucosal thickening in the paranasal sinuses. The o rbits are normal. There is a trace right mastoid effusion. Left vertebral artery is dominant. There i s no significant stenosis of basilar artery or the posterior cerebral arteries. There is no significa nt stenosis of the intracranial internal carotid arteries or anterior or middle cerebral arteries. An terior communicating artery is normal. There is no aneurysm. The posterior communicating arteries are normal. NECK CTA: There is mild scarring at the lung apices. There are no pathologically enlarged lymph nodes . There is no significant stenosis of the vertebral arteries. There is no visible plaque in the proxi mal internal carotid arteries. There is 0% stenosis of the proximal right internal carotid artery rel ative to normal distal artery lumen diameter (NASCET criteria). There is 0% stenosis of the proximal left internal carotid artery relative to normal distal artery lumen diameter. There is moderate cervi racheal spondylosis. IMPRESSION: 1. Normal brain. No aneurysm or significant intracranial arterial stenosis. 2. 0% stenosis of the proximal internal carotid arteries relative to normal distal artery lumen diame ters (NASCET criteria). Reviewed, dictated and finalized at location A. IMPRESSION: 1. Normal brain. No aneurysm or significant intracranial arterial stenosis. 2. 0% stenosis of the proximal internal carotid arteries relative to normal dis maciej artery lumen diameters (NASCET criteria).
== END ==
PROVIDERS: PCP Family Medicine; Visit Provider Student in an Organized Health Care Education/Training Program
DX: R42 Dizziness and giddiness (principal)
CPT/HCPCS: 70496; 70498; Q9967

== ENCOUNTER → 2022-07-14 14:03 | Outpatient (CLI) | payer BC, OTHER, SELFPAY ==
--- NOTE | ~2022-07-14 | DEXA_ITS ---
Bone Density Report Name: NATALIA BOO Age: 56 Sex: Female Ethnicity: White Date of : 1965 Indication: postmenopausal; screening for osteoporosis; parental hip fracture; hysterectomy; Referring Provider: SALENA KERN Study: Bone densitometry was performed. Exam Date: July 14, 2022 Accession number: [id number] Bone Density: Region BMD T-score Z-score Classification AP Spine (L1, L2, L3) 0.892 -1.1 -0.1 Osteopenia Femoral Neck (Left) 0.678 -1.5 -0.5 Osteopenia Total Hip (Left) 0.846 -0.8 -0.1 Normal Femoral Neck (Right) 0.648 -1.8 -0.8 Osteopenia Total Hip (Right) 0.837 -0.9 -0.2 Normal Total Hip Mean 0.842 -0.9 -0.2 Normal World Health Organization criteria for BMD impression classify patients as: Normal (T-score at or above -1.0), Osteopenia (T-score between -1.0 and -2.5), or Osteoporosis (T-score at or below -2.5). 10-year Fracture Risk: FRAX not reported because: Treated for osteoporosis Clinical Information Provided by Patient: Parent has had a hip fracture Is being treated for osteoporosis Has used the following medications: HRT (i.e. estrogen/hormone therapy), Vitamin D, MTV Has the following medical conditions: Hysterectomy Patient maximum height was 70 Menopause Age: 47 Does not regularly consume dairy products Drinks caffeinated beverages Onset of menses at age 15 Number of children 0 Impression: The patient has low bone mass, based on the Right Femoral Neck T-score. The patient has risk factors, including: parental hip fracture. Discussion: It is important to ask patients whether they are taking their medications and to encourage continued and appropriate compliance with their osteoporosis therapies to reduce fracture risk. It is also important to review their risk factors and encourage appropriate calcium and vitamin D intakes, exercise, fall prevention and other lifestyle measures. Follow-Up: Consider a repeat BMD and Vertebral Fracture Assessment (VFA) exam in 2 years or sooner if medically necessary, to reassess this patient's status. Reported by: WILMER on 07/14/2022 2:47:00 PM. Reviewed, dictated and finalized at location Marvel HUNT
--- NOTE | ~2022-07-14 | MM_ITS ---
EXAMINATION: MM screening ross BI w trevor HISTORY: Screening mammogram TECHNIQUE: Craniocaudal and mediolateral oblique 3-D tomosynthesis images were obtained and synthetic 2-D images were generated. CAD analysis was submitted and interpreted. COMPARISON: 06/16/2021, 06/12/2020, 06/21/2019 bilateral screening mammogram examinations BREAST PARENCHYMAL COMPOSITION: The breasts are heterogeneously dense, which may obscure small masses . FINDINGS: Numerous benign microcalcifications are again noted scattered throughout both breasts. Ther e is no evidence of suspicious mass, calcification, or architectural distortion to suggest malignancy in either breast. There has been no suspicious interval change. IMPRESSION: 1. No mammographic evidence of malignancy. 2. Recommend routine screening mammography in one year. BI-RADS Category 2: Benign finding(s). Reviewed, dictated and finalized at location A. L FUSER TENDER
== END ==
PROVIDERS: PCP Family Medicine; Visit Provider Obstetrics & Gynecology
DX: Z12.31 Encounter for screening mammogram for malignant neoplasm of breast (principal); Z78.0 Asymptomatic menopausal state; M85.852 Other specified disorders of bone density and structure, left thigh; M85.851 Other specified disorders of bone density and structure, right thigh
CPT/HCPCS: 77063; 77067; 77080

== ENCOUNTER → 2022-12-24 11:27 | Outpatient (CLI) | payer BC, OTHER, SELFPAY ==
--- NOTE | ~2022-12-24 | XR_ITS ---
Left foot Technique: AP, oblique, and lateral views were obtained. Clinical History: Plantar pain Findings: No acute fracture or dislocation is seen. Osseous alignment is anatomic. Joint spaces are p reserved without erosive or degenerative change. Soft tissues are unremarkable. Impression: Unremarkable left foot radiographs. Reviewed, dictated and finalized at [facility]. Impression: Unremarkable left foot radiographs.
== END ==
PROVIDERS: PCP Nurse Practitioner Family; Visit Provider Nurse Practitioner Family
DX: M79.675 Pain in left toe(s) (principal)
CPT/HCPCS: 73630

== ENCOUNTER 2023-09-30 07:08 | Outpatient (CLI) | payer BC, OTHER, SELFPAY ==
--- NOTE | ~2023-09-30 | MM_ITS ---
EXAMINATION: MM screening ross BI w trevor HISTORY: Screening mammogram TECHNIQUE: Craniocaudal and mediolateral oblique 3-D tomosynthesis images were obtained and synthetic 2-D images were generated. CAD analysis was submitted and interpreted. COMPARISON: 07/14/2022, 06/16/2021 bilateral screening mammogram examinations BREAST PARENCHYMAL COMPOSITION: The breasts are heterogeneously dense, which may obscure small masses . FINDINGS: Again noted are numerous benign punctate and small circular microcalcifications scattered t hroughout both breasts. There is no evidence of suspicious mass, calcification, or architectural dist ortion to suggest malignancy in either breast. There has been no suspicious interval change. IMPRESSION: 1. No mammographic evidence of malignancy. 2. Recommend routine screening mammography in one year. BI-RADS Category 2: Benign finding(s). Reviewed, dictated and finalized at location A. HEAD PACKER
== END 2023-09-30 07:09 | disposition home or self-care (01) ==
PROVIDERS: PCP Nurse Practitioner Family; Visit Provider Obstetrics & Gynecology
DX: Z12.31 Encounter for screening mammogram for malignant neoplasm of breast (principal)
CPT/HCPCS: 77063; 77067

== ENCOUNTER 2024-03-16 07:09 | Outpatient (CLI) | payer BC, OTHER, SELFPAY ==
--- NOTE | ~2024-03-16 | XR_ITS ---
XR hip LT 2V w AP pelvis Ordering provider: Flora Rosales History: . M25.552 - Pain in left hip . Comparison: None. FINDINGS: BONES: No acute fracture or dislocation. HIP JOINT SPACES: Normal. SACROILIAC JOINT SPACES/LUMBAR SPINE: The sacroiliac joint spaces are normal. Mild degenerative parker es of the visualized lower lumbar spine. PUBIC SYMPHYSIS: Normal. SOFT TISSUES: Normal. IMPRESSION: No acute osseous abnormality pelvis and left hip. Reviewed, dictated and finalized at location A.
== END 2024-03-16 07:10 ==
PROVIDERS: PCP Family Medicine; Visit Provider Physician Assistant Medical
DX: M25.552 Pain in left hip (principal)
CPT/HCPCS: 73502

== ENCOUNTER 2024-07-24 10:45 | Outpatient (CLI) | payer BC, OTHER, SELFPAY ==
--- NOTE | ~2024-07-24 | MR_ITS ---
MRI of the lumbar spine Clinical History: Radiculopathy Technique: Axial T2-weighted images, and sagittal T1-weighted, T2-weighted, and T2 fat-sat images wer e acquired. Findings: There is no fracture or subluxation lumbar spine. Vertebral bodies maintain normal height a nd alignment. No suspicious bone marrow signal abnormality seen. At L1-L2, there is no significant disc bulge or herniation. There is minimal facet arthropathy. No sp inal canal stenosis or neural foraminal narrowing. At L2-L3, there is minimal disc bulge. There is minimal facet arthropathy. No spinal canal stenosis o r neural foraminal narrowing. L3-L4, there is mild degenerative spurring with mild disc bulge. There is moderate facet arthropathy. No central canal stenosis there is minimal bilateral neural foraminal narrowing. At L4-L5, there is mild to moderate degenerative disc narrowing. There is diffuse disc bulge with mod erate facet arthropathy. No central canal stenosis. There is moderate bilateral neural foraminal narr owing. At L5-S1, there is mild disc bulge with tiny annular fissure. There is mild facet arthropathy. No noreen tral canal stenosis. There is mild left neural foraminal narrowing. Right neural foramen preserved. Paravertebral soft tissues are unremarkable. Impression: [id number] degenerative spondylosis overall, as detailed above, especially the lower lumbar spi ne. Reviewed, dictated and finalized at [facility]. ONNEL CONSULTANT Impression: [id number] degenerative spondylosis overall, as detailed above, especiall y the lower lumbar spine.
== END 2024-07-24 10:46 | disposition home or self-care (01) ==
LOC: MICIMG 10:45
PROVIDERS: PCP Nurse Practitioner; Visit Provider Nurse Practitioner
DX: M47.816 Spondylosis without myelopathy or radiculopathy, lumbar region (principal)
CPT/HCPCS: 72148

== ENCOUNTER 2024-10-16 07:19 | Outpatient (CLI) | payer BC, OTHER, SELFPAY ==
--- NOTE | ~2024-10-16 | MM_ITS ---
EXAMINATION: MM screening ross BI w trevor HISTORY: Screening mammogram TECHNIQUE: Craniocaudal and mediolateral oblique 3-D tomosynthesis images were obtained and synthetic 2-D images were generated. CAD analysis was submitted and interpreted. COMPARISON: 09/30/2023, 07/14/2022, 06/16/2021 BREAST PARENCHYMAL COMPOSITION:Dense: The breasts are extremely dense, which lowers the sensitivity o f mammography. FINDINGS: No suspicious mass, calcification, or architectural distortion are identified in either christin ast to suggest malignancy. There has been no suspicious interval change. IMPRESSION: No mammographic evidence of malignancy. Recommend routine screening mammography in one year. BI-RADS Category 1: Negative Reviewed, dictated and finalized at location . Y REPAIRER
--- NOTE | ~2024-10-16 | DEXA_ITS ---
Bone Density Report Name: NATALIA BOO Age: 58 Sex: Female Ethnicity: White Date of : 1965 Indication: postmenopausal; screening for osteoporosis; parental hip fracture; hysterectomy; secondary osteoporosis; Referring Provider: SALENA KERN Study: Bone densitometry was performed. Exam Date: October 16, 2024 Accession number: [id number] Bone Density: Region BMD T-score Z-score Classification AP Spine(L1-L4) 0.952 -0.9 0.3 Normal Femoral Neck (Left) 0.701 -1.3 -0.2 Osteopenia Total Hip (Left) 0.878 -0.5 0.2 Normal Femoral Neck (Right) 0.677 -1.6 -0.4 Osteopenia Total Hip (Right) 0.868 -0.6 0.2 Normal Total Hip Mean 0.873 -0.6 0.2 Normal World Health Organization criteria for BMD impression classify patients as: Normal (T-score at or above -1.0), Osteopenia (T-score between -1.0 and -2.5), or Osteoporosis (T-score at or below -2.5). 10-year Fracture Risk(1): Major Osteoporotic Fracture 12% Hip Fracture 0.6% Reported Risk Factors: [place] (), Neck BMD=0.677, BMI=19.2, parental fracture, secondary osteoporosis (1) FRAX(R) Version 3.08. Fracture probability calculated for an untreated patient. Fracture probability may be lower if the patient has received treatment. Clinical Information Provided by Patient: Parent has had a hip fracture Has secondary osteoporosis Has used the following medications: Vitamin D Has the following medical conditions: Hysterectomy Patient maximum height was 70 Menopause Age: 47 Does not regularly consume dairy products Drinks caffeinated beverages Onset of menses at age 15 Number of children 0 Impression: The patient has low bone mass, based on the Right Femoral Neck T-score. The patient has an estimated ten-year risk of hip fracture of 0.6% and an estimated ten-year risk of major fracture of 12%, based on the WHO FRAX algorithm. The patient has risk factors, including: parental hip fracture. Discussion: BONE DENSITY IS LOW AT ONE OR MORE SKELETAL SITES. This patient's lowest T-score is low at one or more skeletal sites. It meets the World Health Organization's (WHO) criteria for ?low bone mass? (T-score between -1.0 and -2.5). The patient's 10-year risk of fracture as calculated by FRAX is less than the threshold where pharmacological therapy is recommended by the National Osteoporosis Foundation (NOF). However, all treatment decisions require clinical judgment and consideration of individual patient factors, including patient preferences, comorbidities, previous drug use, risk factors not captured in the FRAX model (e.g., frailty, falls, vitamin D deficiency, increased bone turnover, interval significant decline in bone density) and possible under or overestimation of fracture risk by FRAX. The patient should follow a healthful lifestyle (good nutrition with adequate calcium and vitamin D, and appropriate weight-bearing exercise). Follow-Up: Consider repeating this study in 2 to 3 years to reassess this patient's status, or sooner if there is some new clinical indication. Reported by: JOSIAH on 10/16/2024 7:59:00 AM. Reviewed, dictated and finalized at location AAna María HUNT
--- OUTSIDE RECORDS SUMMARY | 2024-10-16 07:23 | XMS_ITS | Referral Summary ---
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 0 Active estradioL (ESTRACE) 2 mg tablet TK 1 T PO QD 0 Active nitrofurantoin monohydrate (MACROBID) 100 mg capsule TK 1 C PO BID TAT WHEN HAVING SYMPTOMS OF URINARY TRACT INFECTION 0 Active fluticasone propionate (FLONASE) 50 mcg/actuation nasal spray SHAKE LIQUID AND USE 1 SPRAY IN EACH NOSTRIL TWICE DAILY 2 Active cyclobenzaprine (FLEXERIL) 5 mg tablet Take 5 mg by mouth 3 (three) times a day as needed for muscle spasms 2 Active azelastine (ASTELIN) 137 mcg (0.1 %) nasal spray Administer 1 spray into each nostril 2 (two) times a day Use in each nostril as directed 30 mL 1 2 Active Active Problems Problem Noted Date Diagnosed Date Orthostatic hypotension 03/27/2022 Eustachian tube dysfunction, bilateral 2 BMI 20.0-20.9, adult 04/01/2020 Assessment & Plan (04/01/2020 1:35 PM CDT): BMI is okay. Normal range is 18-25 and overweight is 25-30. Continue to work on eating healthy and exercising at least 150 minutes per week. Chronic idiopathic constipation 10/25/2017 Resolved Problems Problem Noted Date Diagnosed Date Resolved Date Night sweat 11/06/2019 04/01/2020 Acute URI 11/06/2019 04/01/2020 Assessment & Plan (11/06/2019 10:54 AM CDT): Discussed viral nature of illness, treat symptomatically Tylenol as needed Increase fluids, rest and handwashing Warm saltwater gargles Hot water/hot tea with honey Saline rinses to nose at least twice daily No sharing cups or utensils Cool mist humidifier May use vicks vaporub on chest and feet as needed to help with cough Please call if symptoms change or worsen, to the ER for anything emergent Breast mass, right 07/27/2016 0 Social History Tobacco Use Types Packs/Day Years Used Date Smoking Tobacco: Never Smokeless Tobacco: Never Alcohol Use Standard Drinks/Week Comments Yes 0 (1 standard drink = 0.6 oz pur e alcohol) AUDIT-C Answer Date Recorded Q1: How often do you have a drink containing alc ohol? 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 Gender Identity Female 03/20/2022 12:11 PM CDT Sexual Orientation Straight 03/20/2022 12 :11 PM CDT Last Filed Vital Signs Vital Sign Reading Time Taken Comments Blood Pressure 131/70 03/27/2022 3:18 PM CDT Pulse 59 03/27/2022 3:18 PM CDT Temperature 36.6 C (97.9 F) 04/04/2020 2:31 PM CDT Respiratory Rate 16 04/01/2020 1:23 PM CDT Oxygen Saturation 97% 04/04/2020 2:31 PM CDT Inhaled Oxygen Concentration - - Weight 57.1 kg (125 lb 12.8 oz) 03/27/2022 3:18 PM CDT Height 177.8 cm (5' 10 ) 04/01/2020 1:23 PM CDT Body Mass Index 18.05 04/01/2020 1:23 PM CDT Plan of Treatment Not on file Procedures Procedure Name Priority Date/Time Associated Diagnosis Comments SCREENING MAMMOGRAM 2D BILATERAL Schedule Routine, Read Routine (OP Routine) 06/21/2019 COLONOSCOPY Routine 12/23/2017 from Last 3 Months or Most Recently Relevant to Health Maintenance Results * Screening Mammogram 2D Bilateral (06/21/2019) SCRIBED BI-RADS 1 Anatomical Region Laterality Modality Breast Bilateral Mammography Narrative 06/21/2019 Under media us Historical Provider IMG MAMMO PROCEDURES Emily l Result * Colonoscopy (12/23/2017) Anatomical Region Laterality Modality Other Narrative 12/23/2017 See under media us Historical Provider ENDOSCOPY PROCEDURES Emily l Result from Last 3 Months or Most Recently Relevant to Health Maintenance Insurance [facility] CHOICE PLUS [facility] CHOICE PLUS Care Teams Aquaculture Worker Relationship Specialty Start Date End Date Jeana Lau MD [address] [place] [address] PCP - General Family Medicine 08/29/19
--- OUTSIDE RECORDS SUMMARY | 2024-10-16 07:23 | XMS_ITS | Encounter Summary ---
Author Organization [facility] Facility Care Team Providers Care Business Librarian Name Role Phone Jeana Lau MD Primary Care Provi isabel Encounter Details Date Type Department Care Team (Latest Contact Info) Description 12/26/2015 Orders Only MMG CLINCONV ProviderHelder MD [address] [place] [address] Social History Tobacco Use Types Packs/Day Years Used Date Smoking Tobacco: Never Assessed Comments Unknown Sex and Gender Information Value Date Recorded Sex Assigned at Not on file Legal Sex Female 9:11 PM FINISHER ACCORDION Gender Identity Female 03/20/2022 12:11 PM CDT Sexual Orientation Straight 03/20/2022 12 :11 PM CDT documented as of this encounter Plan of Treatment Not on file documented as of this encounter Procedures Procedure Name Priority Date/Time Associated Diagnosis Comments SCAN - LABS 12/26/2015 12:00 AM CDT SCAN - LABS 12/26/2015 12:00 AM CDT documented in this encounter Results * SCAN - LABS (12/26/2015 12:00 AM CDT) Narrative 12/26/2015 12:00 AM CDT Ordered by an unspecified provider. Historical Provider Final Res ult * SCAN - LABS (12/26/2015 12:00 AM CDT) Narrative 12/26/2015 12:00 AM CDT Ordered by an unspecified provider. us Historical Provider Final Res ult documented in this encounter Visit Diagnoses Not on filedocumented in this encounter Additional Health Concerns Infection Onset Date Last Indicated Resolved Time COVID: Suspected 04/04/2020 04/04/2020 04/05/2020 1:48 PM CDT COVID19 04/04/2020 04/04/2020 04/18/2020 3:07 AM CDT documented as of this encounter Care Teams Business Librarian Relationship Specialty Start Date End Date Jeana Lau MD [address] [place] [address] PCP - General Family Medicine 08/29/19 documented as of this encounter
--- OUTSIDE RECORDS SUMMARY | 2024-10-16 07:23 | XMS_ITS | Clinical Summary ---
Author Organization [facility] [place] Address [address] [place] [address] Phone Care Team Providers Care Community Specialist Name Role Phone Jeana Oshea DO Primary Care Provider Allergies No known active allergies Medications EVENING PRIMROSE OIL (EVENING PRIMROSE ORAL) Take by mouth. Active oxyCODONE-acetam inophen (PERCOCET) 5-325 mg tablet Take 1 Tablet by mouth every 6 hours as needed for Pain. Max Daily Amount: 4 Tablet 20 Tablet 09/17/2016 Active Active Problems Patient Care Coordination No te Formatting of this note migh t be different from the original. Primary Care: Jeana Oshea DO Referring Provider: Sarai Serrato MD [address] [facility] [address] [place] [address] Other: Problem Noted Date Diagnosed Date Breast mass, right 07/27/2016 Night sweat Muscle pain Family History Medical History Relation Name Comments Heart Disease Father Lymphoma Mother Relation Name Status Comments Father Mother Alive Social History Tobacco Use Types Packs/Day Years Used Date Smoking Tobacco: Never Smokeless Tobacco: Never Alcohol Use Standard Drinks/Week Comments Yes 0 (1 standard drink = 0.6 oz pur e alcohol) moderate Comments No Sex and Gender Information Value Date Recorded Sex Assigned at Not on file Legal Sex Female 8:29 AM ICU REGISTERED NURSE Gender Identity Not on file Sexual Orientation Not on file Last Filed Vital Signs Vital Sign Reading Time Taken Comments Blood Pressure 116/59 09/17/2016 9:18 AM ICU REGISTERED NURSE Pulse 42 09/17/2016 9:18 AM ICU REGISTERED NURSE Temperature 36.3 C (97.4 F) 09/17/2016 9:18 AM ICU REGISTERED NURSE Respiratory Rate 17 09/17/2016 9:18 AM ICU REGISTERED NURSE Oxygen Saturation 100% 09/17/2016 9:18 AM ICU REGISTERED NURSE Inhaled Oxygen Concentration - - Weight 61.7 kg (136 lb) 09/25/2016 9:47 AM ICU REGISTERED NURSE Height 177.8 cm (5' 10 ) 09/17/2016 7:50 AM ICU REGISTERED NURSE Body Mass Index 19.51 09/17/2016 7:50 AM ICU REGISTERED NURSE Plan of Treatment Health Maintenance Due Date Last Done Comments DTAP/TDAP/TD VACCINES (1 - Tdap) 11/26/1986 HEPATITIS B VACCINES (1 of 3 - 19+ 3-dose series) 11/26/1986 CERVICAL CANCER SCREENING 11/26/1997 COLORECTAL SCREENING 11/26/2012 Colorectal Cancer Screening 11/26/2012 FIT-DNA Q 3 years 11/26/2012 FIT/FOBT Q 1 year 11/26/2012 Flex Sig/CT Colonography Q 5 years 11/26/2012 BREAST CANCER SCREENING 06/05/2017 06/05/20 16, 06/03/2015, 05/31/2014 ZOSTER VACCINE (1 of 2) 11/26/2017 INFLUENZA VACCINE (#1) 2024 Medical Devices Implanted Type Area Mud Grinder Device Identifier Shelf Expiration Date Model / Serial / Lot Hemostatic Surgicel 2x14in 1950 - [id number] Implanted:Qty: 1 on 09/17/2016 [place] [facility] [place] Right: Breast [employer]- [employer] 10/20/20201950 / / [id number] Procedures Procedure Name Priority Date/Time Associated Diagnosis Comments MAMMO SCREEN BILAT W OR WO CAD Routine 06/05/2016 from Last 3 Months or Most Recently Relevant to Health Maintenance Results * MAMMO DIGITAL SCREEN BILAT (06/05/2016) Anatomical Region Laterality Modality Breast Bilateral Other Sarai Serrato MD MAMMO ORDERABLES Edited Result - Final from Last 3 Months or Most Recently Relevant to Health Maintenance Insurance [employer] BLUE ACCESS/TRUE BLUE PPO Advance Directives For more information, please contact: [phone] * Full Code (Latest Code Status on File) Date Activated Date Inactivated Comments 09/17/2016 7:48 AM 09/17/2016 11:34 AM Care Teams Community Specialist Relationship Specialty Start Date End Date Jeana Oshea DO PCP - General Family Practice 07/27/16
--- OUTSIDE RECORDS SUMMARY | 2024-10-16 07:23 | XMS_ITS | Encounter Summary ---
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 Historical Provider Final Res ult documented in this encounter Visit Diagnoses Not on filedocumented in this encounter Additional Health Concerns Infection Onset Date Last Indicated Resolved Time COVID: Suspected 04/04/2020 04/04/202004/0504/05/2020 1:48 PM CDT COVID19 04/04/2020 04/04/2020 04/18/2020 3:07 AM CDT documented as of this encounter Care Teams Airplane Flight Attendant Supervisor Relationship Specialty Start Date End Date Jeana Lau MD [address] [place] [address] PCP - General Family Medicine 08/29/19 documented as of this encounter
--- OUTSIDE RECORDS SUMMARY | 2024-10-16 07:23 | XMS_ITS | Clinical Summary ---
Author Organization [address] Address [address] [place] [address] Care Team Providers Care Senior Mechanical Engineer Name Role Phone Jeana Lau MD Primary [...] anything emergent Breast mass, right 07/27/2016 0 Surgical History Surgery Date Site/Laterality Comments KNEE SURGERY HYSTERECTOMY OTHER SURGICAL HISTORY Sinus Medical History Medical History Date Comments Osteopenia Breast mass, right 07/27/2016 Family History Medical History Relation Name Comments Arthritis Other Cancer Other Heart disease Other Irritable bowel syndrome Other Relation Name Status Comments Other Social History Tobacco Use Types Packs/Day Years [...] on file Legal Sex Female 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 Gender Identity Female 03/20/2022 12:11 PM CDT Sexual Orientation Straight 03/20/2022 12 :11 PM CDT Obstetrics History Last Filed Vital Signs Vital Sign Reading [...] 04/01/2020 1:23 PM CDT Plan of Treatment Health Maintenance Due Date Last Done Comments Hepatitis C Screening 1965 DTaP/Tdap/Td Vaccine (1 - Tdap) 11/26/1978 Hepatitis B Screening 11/26/1985 Regular Well Visit/Exam 18-64 11/26/1985 Zoster Vaccine (1 of 2) 11/26/2017 Breast Cancer Screening-Mammogram 06/21/2020 06/21/2019 Depression Screening 04/01/2021 04/01/2020 Colon Cancer Screening-Colonoscopy 12/23/2022 12/23/2017 Covid-19 Vaccine ( season) 2024 08/02/2021, 12/07/2020, 11/16/2020 Influenza Vaccine (#1) 2024 08/09/2021 Colon Cancer Screening-CT Colonography Discontinued 12/23/2017 Colon Cancer Screening-DNA Stool Discontinued 12/23/2017 Colon Cancer Screening-FIT Discontinued 12/23/2017 Colon Cancer Screening-Sigmoidoscopy Discontinued 12/23/2017 Pneumococcal vaccine <65 Aged Out No longer eligible based on patient's age to complete this topic Procedures Procedure Name Priority Date/Time Associated Diagnosis [...] Most Recently Relevant to Health Maintenance Insurance [employer] [place] [facility] CHOICE PLUS BLUE [facility] CHOICE PLUS Care Teams Senior Mechanical Engineer Relationship Specialty Start Date End Date Jeana Lau MD [address] [place] [address] PCP - General Family Medicine 08/29/19
--- OUTSIDE RECORDS SUMMARY | 2024-10-16 07:23 | XMS_ITS | Encounter Summary ---
Author Organization 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 Historical Provider Final Res ult documented in this encounter Visit Diagnoses Not on filedocumented in this encounter Additional Health Concerns Infection Onset Date Last Indicated Resolved Time COVID: Suspected 04/04/2020 04/04/2020 04/05/2020 1:48 PM CDT COVID19 04/04/2020 04/04/2020 04/18/2020 3:07 AM CDT documented as of this encounter Care Teams Surgeon/President Relationship Specialty Start Date End Date Jeana Lau MD [address] [place] [address] PCP - General Family Medicine 08/29/19 documented as of this encounter
--- OUTSIDE RECORDS SUMMARY | 2024-10-16 07:24 | XMS_ITS | Encounter Summary ---
Author Organization [facility] Facility Care Team Providers Care Swat Team Member Name Role Phone Jeana Lau MD Primary Care Provi isabel Encounter Details Date Type Department Care Team (Latest Contact Info) Description 12/14/2017 Orders Only MMG CLINCONV ProviderHelder MD [address] [place] [address] Social History Tobacco Use Types Packs/Day Years Used Date Smoking Tobacco: Never Assessed Comments Unknown Sex and Gender Information Value Date Recorded Sex Assigned at Not on file Legal Sex Female 9:11 PM FLUX MIXER Gender Identity Female 03/20/2022 12:11 PM CDT Sexual Orientation Straight 03/20/2022 12 :11 PM CDT documented as of this encounter Plan of Treatment Not on file documented as of this encounter Procedures Procedure Name Priority Date/Time Associated Diagnosis Comments SCAN - LABS 01/06/2018 12:00 AM CDT documented in this encounter Results * SCAN - LABS (01/06/2018 12:00 AM CDT) Narrative 01/06/2018 12:00 AM CDT Ordered by an unspecified provider. Historical Provider Final Res ult documented in this encounter Visit Diagnoses Not on filedocumented in this encounter Additional Health Concerns Infection Onset Date Last Indicated Resolved Time COVID: Suspected 04/04/2020 04/04/2020 04/05/2020 1:48 PM CDT COVID19 04/04/2020 04/04/2020 04/18/2020 3:07 AM CDT documented as of this encounter Care Teams Swat Team Member Relationship Specialty Start Date End Date Jeana Lau MD [address] [place] [address] PCP - General Family Medicine 08/29/19 documented as of this encounter
== END 2024-10-16 07:20 | disposition home or self-care (01) ==
LOC: ANHIMG 07:20
PROVIDERS: PCP Nurse Practitioner; Visit Provider Obstetrics & Gynecology
DX: Z12.31 Encounter for screening mammogram for malignant neoplasm of breast (principal); Z78.0 Asymptomatic menopausal state; M85.852 Other specified disorders of bone density and structure, left thigh; M85.851 Other specified disorders of bone density and structure, right thigh
CPT/HCPCS: 77063; 77067; 77080

== ENCOUNTER 2024-10-30 11:15 | Outpatient (CLI) | payer BC, OTHER, SELFPAY ==
--- NOTE | ~2024-10-30 | US_ITS ---
EXAMINATION: US thyroid DATE: 10/30/2024 11:27 INDICATION: Subclinical hyperthyroidism. TECHNIQUE: Multiple ultrasound images of the thyroid were obtained. COMPARISON: Ultrasound 05/24/2020 FINDINGS: The right thyroid lobe measures 4.8 x 1.8 x 1.4 cm. The left thyroid lobe measures 4.9 x 1.5 x 1.2 c m. There is normal echotexture and echogenicity throughout the thyroid gland. No discrete nodules id entified. Normal vascular flow is present. IMPRESSION: 1. Normal thyroid. Reviewed, dictated and finalized at location B. IMPRESSION: 1. Normal thyroid.
== END 2024-10-30 11:16 | disposition home or self-care (01) ==
LOC: GOSHIMG 11:16
PROVIDERS: PCP Nurse Practitioner; Visit Provider Nurse Practitioner
DX: E05.90 Thyrotoxicosis, unspecified without thyrotoxic crisis or storm (principal)
CPT/HCPCS: 76536

== ENCOUNTER 2025-04-21 13:33 | Emergency (ER) | payer BC, OTHER, SELFPAY ==
--- OUTSIDE RECORDS SUMMARY | 2019-10-13 02:00 | XMS_ITS | Continuity of Care Document ---
Author Organization [facility] Address [address] [facility] [address] [place] [address] Phone Care Team Providers Care Sales Assistant Entertainment [employer] Media Name Role Phone Yancy PT, DPT, Jasen Unavailable Unavailable Procedures Procedure Date Therapeutic Activities Neuromuscular Re-Ed Therapeutic Exercise Therapeutic Activities Neuromuscular Re-Ed Therapeutic Exercise Therapeutic Activities Neuromuscular Re-Ed Therapeutic Exercise Therapeutic Activities Neuromuscular Re-Ed Therapeutic Exercise PT Evaluation Low Complexity Neuromuscular Re-Ed Therapeutic Exercise Advance Directives Directive Yes / No Effective Date File Name No Information Encounters Encounter Description Practice Location Reason(s) For Visit Diagnoses Date Provider Providers Copied on Encounter [facility], [id number], tel:[phone] [place] No Information Sep- 0 Yancy Aggarwal. . Referring Provider: Noel Singh, [address] [place] [address], [address]. tel:[phone] [facility], [address] [facility] [address], [place], [place], [id number], tel:[phone] [place] No Information 0 Makler Luke. . Referring Provider: Noel Singh, [facility], [address]. tel:[phone] [place] [address], [place], [place], [id number], tel:[phone] [place] No Information 0 Makconnie Luke. . Referring Provider: Noel Singh, [address] [place] [address], [address]. tel:[phone], [id number], tel:[phone] [place] No Information 0 Makler Luke. . Referring Provider: Noel Singh, [address] [place] [address], [address]. tel:[phone], [id number], tel:[phone] [place] No Information 0 Threltessa Peace. . Referring Provider: Noel Singh, [address] [place] [address], [address]. tel:[phone] Family History Family Member Type Diagnosis Age At Onset No Information Payers Payer name Insurance type Covered republican ID Authorscot lomeliandrei(s) [facility] [id number] [facility] CI [id number] Social History Type Description Quantity Date Captured Comments Sex Female Smoking Status No Information Chief Complaint And Reason For Visit No Information Reason For Referral Reason For Referral No Information History Of Present Illness Encounter Date Complaint History Of Prese nt Illness No Information Functional Status Date Functional Assessmen t No Information Instructions Date Instruction Additional Infor mation No Information Assessments Type Assessment Date No Information Patient Care Teams Name Effective Dates (start - stop) Status Members No Information
--- OUTSIDE RECORDS SUMMARY | 2025-04-21 13:35 | XMS_ITS | Clinical Summary ---
Author Organization [address] Address [address] [place] [address] Care Team Providers Care Formulation Chemist Name Role Phone Jeana Lua MD Primary Care Provi isabel Allergies No [...] on file Legal Sex Female 9:11 PM SECTION CREWS ACTIVITIES CLERK Gender Identity Female 03/20/2022 12:11 PM CDT [...] 3:18 PM CDT Height 177.8 cm (5' 10) 04/01/2020 1:23 PM CDT Body Mass Index [...] 2024 08/02/2021, 12/07/2020, 11/16/2020 Influenza Vaccine (#1) 2025 08/09/2021 Colon Cancer Screening-CT Colonography Discontinued 12/23/2017 [...] Most Recently Relevant to Health Maintenance [place] [employer] [place] [facility] CHOICE PLUS [facility] H[facility]/PPO Address: [address] [address] [place] [address] [facility] CHOICE PLUS [facility] H[facility]/PPO Address: [address] [address] [place] [address] Care Teams Formulation Chemist Relationship Specialty Start Date End Date Jeana Lau MD [address] [place] [address] PCP - General Family Medicine 08/29/19
--- OUTSIDE RECORDS SUMMARY | 2025-04-21 13:35 | XMS_ITS | Clinical Summary ---
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 Gender Identity Not on file Sexual Orientation Not on file Last Filed Vital Signs Vital Sign Reading Time Taken Comments Blood Pressure 116/59 09/17/2016 9:18 AM STEEL DIE PRESS SET UP OPERATOR Pulse 42 09/17/2016 9:18 AM STEEL DIE PRESS SET UP OPERATOR Temperature 36.3 C (97.4 F) 09/17/2016 9:18 AM STEEL DIE PRESS SET UP OPERATOR Respiratory Rate 17 09/17/2016 9:18 AM STEEL DIE PRESS SET UP OPERATOR Oxygen Saturation 100% 09/17/2016 9:18 AM STEEL DIE PRESS SET UP OPERATOR Inhaled Oxygen Concentration - - Weight 61.7 kg (136 lb) 09/25/2016 9:47 AM STEEL DIE PRESS SET UP OPERATOR Height 177.8 cm (5' 10) 09/17/2016 7:50 AM STEEL DIE PRESS SET UP OPERATOR Body Mass Index 19.51 09/17/2016 7:50 AM STEEL DIE PRESS SET UP OPERATOR Plan of Treatment Health Maintenance Due Date Last Done Comments DTAP/TDAP/TD VACCINES (1 - Tdap) 11/26/1986 HEPATITIS B VACCINES (1 of 3 - 19+ 3-dose series) 11/26/1986 HPV/Cotest (21-29) 11/26/1988 CERVICAL CANCER SCREENING 11/26/1997 HPV/Cotest (30-65) 11/26/1997 PAP SMEAR 11/26/1997 COLORECTAL SCREENING 11/26/2012 Colorectal Cancer Screening 11/26/2012 FIT-DNA Q 3 years 11/26/2012 FIT/FOBT Q 1 year 11/26/2012 Flex Sig/CT Colonography Q 5 years 11/26/2012 BREAST CANCER SCREENING 06/05/2017 06/05/20 16, 06/03/2015, 05/31/2014 ZOSTER VACCINE (1 of 2) 11/26/2017 INFLUENZA VACCINE (#1) 2025 Medical Devices Implanted Type Area Roller Embosser Device Identifier Shelf Expiration Date Model / Serial / Lot Hemostatic Surgicel 2x14in 1950 - [id number] Implanted:Qty: 1 on 09/17/2016 by Carol Seo MD at [facility] [place] Hemostatic Right: Breast [employer] 10/20/20201950 / / [id number] Procedures Procedure Name Priority Date/Time Associated Diagnosis Comments MAMMO SCREEN BILAT W OR WO CAD Routine 06/05/2016 from Last 3 Months or Most Recently Relevant to Health Maintenance Results * MAMMO DIGITAL SCREEN BILAT (06/05/2016) Anatomical Region Laterality Modality Breast Bilateral Other Sarai Serrato MD MAMMO ORDERABLES Edited Result - Final from Last 3 Months or Most Recently Relevant to Health Maintenance Insurance Advance Directives For more information, please contact: [phone] * Full Code (Latest Code Status on File) Date Activated Date Inactivated Comments 09/17/2016 7:48 AM 09/17/2016 11:34 AM Care Teams Licensed Veterinary Technician Relationship Specialty Start Date End Date Jeana Oshea DO PCP - General Family Practice 07/27/16
--- OUTSIDE RECORDS SUMMARY | 2025-04-21 13:35 | XMS_ITS | Encounter Summary ---
Author Organization [facility] Facility Care Team Providers Care Piano Machine Operator Name Role Phone Jeana Lau MD Primary Care Provi isabel Encounter Details Date Type Department Care Team (Latest Contact Info) Description 12/24/2016 Orders Only MMG CLINCONV ProviderHelder MD [address] [place] [address] Social History Tobacco Use Types Packs/Day Years Used Date Smoking Tobacco: Never Assessed Comments Unknown Sex and Gender Information Value Date Recorded Sex Assigned at Not on file Legal Sex Female 9:11 PM REFERENCE TEST CLERK Gender Identity Female 03/20/2022 12:11 PM [...] documented as of this encounter Care Teams Piano Machine Operator Relationship Specialty Start Date End Date Jeana Lau MD [address] [place] [address] PCP - General Family Medicine 08/29/19 documented as of this encounter
--- OUTSIDE RECORDS SUMMARY | 2025-04-21 13:35 | XMS_ITS | Encounter Summary ---
Author Organization [facility] Facility Care Team Providers Care Risk Control Representative Name Role Phone Jeana Lau MD Primary Care Provi isabel Encounter Details Date Type Department Care Team (Latest Contact Info) Description 12/14/2017 Orders Only MMG CLINCONV ProviderHelder MD [address] [place] [address] Social History Tobacco Use Types Packs/Day Years Used Date Smoking Tobacco: Never Assessed Comments Unknown Sex and Gender Information Value Date Recorded Sex Assigned at Not on file Legal Sex Female 9:11 PM WOOD TOOL MAKER Gender Identity Female 03/20/2022 12:11 PM CDT [...] documented as of this encounter Care Teams Risk Control Representative Relationship Specialty Start Date End Date Jeana Lau MD [address] [place] [address] PCP - General Family Medicine 08/29/19 documented as of this encounter
--- OUTSIDE RECORDS SUMMARY | 2025-04-21 13:35 | XMS_ITS | Encounter Summary ---
Author Organization [facility] Facility Care Team Providers Care Tape Fastener Machine Operator Name Role Phone Jeana Lau MD Primary Care Provi isabel Encounter Details Date Type Department Care Team (Latest Contact Info) Description 12/26/2015 Orders Only [facility] CLINCONV ProviderHelder MD [address] [place] [id number] Social History Tobacco Use Types Packs/Day Years Used Date Smoking Tobacco: Never Assessed Comments Unknown Sex and Gender Information Value Date Recorded Sex Assigned at Not on file Legal Sex Female 9:11 PM FLIGHT COORDINATOR Gender Identity Female 03/20/2022 12:11 PM CDT [...] documented as of this encounter Care Teams Tape Fastener Machine Operator Relationship Specialty Start Date End Date Jeana Lau MD [address] [place] [address] PCP - General Family Medicine 08/29/19 documented as of this encounter
--- OUTSIDE RECORDS SUMMARY | 2025-04-21 13:35 | XMS_ITS | Encounter Summary ---
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 Historical Provider Final Res ult documented in this encounter Visit Diagnoses Not on filedocumented in this encounter Additional Health Concerns Infection Onset Date Last Indicated Resolved Time COVID: Suspected 04/04/2020 04/04/202004/0504/05/2020 1:48 PM CDT COVID19 04/04/2020 04/04/2020 04/18/2020 3:07 AM CDT documented as of this encounter Care Teams Statistical Reporting Analyst Relationship Specialty Start Date End Date Jeana Lau MD [address] [place] [address] PCP - General Family Medicine 08/29/19 documented as of this encounter
[2025-04-21 13:41] VITALS: BP 129/46; PULSE 78; RESP 18; TEMP 36.6; O2SAT 100
[2025-04-21 14:08] LABS: EDUAAPPEAR Clear; EDUABILI Negative (Negative); EDUABLOOD Negative (Negative); EDUACOLOR1 Yellow; EDUAGLUCOSE Negative (Negative); EDUAKETONE Negative (Negative); EDUALEUKO Negative (Negative); EDUANITRATE Negative (Negative); EDUAPH 5.0; EDUAPROTEIN Negative (Negative); EDUASPGRAVITY 1.010; EDUAUROBILI 0.2
--- NOTE | 2025-04-21 14:08 | ED.FEMALEGU ---
HPI - Female Genitourinary General Chief complaint: Urogenital-Female Stated complaint: uti Source: patient and family ( ) Mode of arrival: ambulatory Limitations: no limitations History of Present Illness HPI Narrative: 59-year-old female presents to [facility] with complaints of suprapubic pain and urinary frequency since yesterday. The patient reports that she had urinary tract infection 2 weeks ago and was prescribed a week of Macrobid at that time from her primary care provider. Patient is not sure if a culture was obtained at that time. Patient denies vaginal discharge, vaginal bleeding, fever, body aches, chills, nausea, vomiting diarrhea or back pains. MD elicited complaint: other ( urinary frequency, suprapubic pain) Pertinent past history: recurrent UTIs Onset (ago): day(s) (1) Vaginal discharge: none Vaginal bleeding: none Urinary symptoms: Frequency Related Data Home Medications ?Medication ?Instructions ?Recorded ?Confirmed ?Last Taken ?Type cholecalciferol (vitamin D3) 1,250 1,250 mcg PO QMWF 04/23/20 06/01/24 04/04/21 History mcg (50,000 unit) capsule estradiol 1 mg tablet 1 mg PO DAILY 04/23/20 06/01/24 04/04/21 History multivitamin,[id number] 1 tablet PO DAILY 04/23/20 06/01/24 04/04/21 History (Complete Multivitamin tablet) omega-3 fatty acids 500 mg capsule 500 mg PO DAILY 04/23/20 06/01/24 04/04/21 History thyroid (pork) 8 mg capsule 9 mg PO DAILY 05/16/20 06/01/24 04/11/21 History vitamin B complex (B 1 tablet PO DAILY 08/08/20 06/01/24 04/04/21 15:01 History Complex-Vitamin B12 tablet) Allergies Allergy/AdvReac Type Severity Reaction Status Date / Time No Known Allergies Allergy Verified 04/21/25 13:51 Review of Systems Constitutional: Constitutional: Denies chills and Denies fatigue ENT: Denies dizziness, Denies nasal congestion and Denies sore throat Cardiovascular: Cardiovascular: Denies chest pain Respiratory: Respiratory: Denies cough, Denies dyspnea and Denies wheezing Gastrointestinal: Gastrointestinal: Denies abdominal pain, Denies diarrhea, Denies nausea and Denies vomiting Genitourinary: Genitourinary: Denies abnormal vaginal bleeding, Denies hematuria, Reports nocturia, Denies genital lesions, Denies dysuria, Denies flank pain and Denies vaginal discharge Musculoskeletal: Musculoskeletal: Denies arthralgias and Denies joint swelling Integumentary/Breasts: Skin/Breast: Denies rash PMFSH Past Medical History Medical History Right upper quadrant pain Endometriosis Hypothyroidism Body mass index (BMI) less than 20 COVID-19 Osteopenia Surgical History Surgical History H/O vaginal hysterectomy (~12/26/14) TVH, bilateral salpingectomy, left oophorectomy -for benign reasons: endometriosis, pelvic pain, dysmenorrhea. Dr Serrato H/O removal of cyst back of neck Hx of sinus surgery H/O knee surgery H/O LEEP Family History Family History Father Family history of coronary artery disease Family history of heart disease in male family member before age 55 Mother Family history of thyroid disease Family history of lymphoma Sibling Family history of irritable bowel syndrome Social History Social History Smoking status: Never smoker Second hand tobacco smoke exposure: No Alcohol intake: current Drinks per week: 1 Substance use: never Substance use type: does not use Do You Feel Safe in your Home?: Yes Lack of Transportation: No Lack of Food: Never True Current Housing: I Have Housing Concerned About Future Housing: No Difficulty Paying Gas/Electric Bills: No Difficulty Paying for Meds: No Currently Unemployed: No Education: Associate Degree Difficulty w/ Childcare or Family Care: No Living arrangements: with family Occupation/Education: occupation 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 There is no relevant family history pertinent to the presenting complaint. Exam Const: General: healthy appearing and no acute distress Nutritional Appearance: well nourished Orientation/consciousness: patient oriented x3 HENMT: Head: normal to inspection Eyes: Conjunctivae: conjunctivae normal Neck: Neck: normal visual inspection Resp: Effort & Inspection: normal respiratory effort and not labored Auscultation: clear to auscultation bilaterally, no crackles, no rales, no rhonchi and no wheezes Cardio: Rate: regular rate Rhythm: regular rhythm Heart sounds: no murmurs GI: Inspection: non-distended GI Palp: Yes Soft to palpation, No Tenderness to palpation present (GI), No Guarding due to palpation present (GI) and No Rigid due to palpation : General: Yes bladder normal to palpation and Yes no CVA tenderness Skin: General skin exam: normal color Rashes: no rashes Wounds: no wounds Neuro: General: patient oriented x3 and moves all extremities Speech: normal speech Gait exam (Neuro): Normal gait present Extrem: General: normal to inspection Psych: Appearance: grossly normal Affect: normal affect Attitude: cooperative Course Course Level of Care: Express Care Visit Vital Signs Vital signs: Vital Signs Temperature 36.6 C 04/21/25 13:41 Pulse Rate 78 04/21/25 13:41 Respiratory Rate 18 04/21/25 13:41 Blood Pressure 129/46 L 04/21/25 13:41 Pulse Oximetry 100 04/21/25 13:41 Oxygen Delivery Room Air 04/21/25 13:41 Temperature 36.6 C 04/21/25 13:41 Pulse Rate 78 04/21/25 13:41 Respiratory Rate 18 04/21/25 13:41 Blood Pressure 129/46 L 04/21/25 13:41 Pulse Oximetry 100 04/21/25 13:41 Oxygen Delivery Room Air 04/21/25 13:41 MDM - Female Genitourinary MDM Narrative Medical decision making narrative: Discussed negative urinalysis results with patient and . Urine culture will be sent to lab. Patient understands that we will call her if an antibiotic is needed. Encouraged patient to increase water intake and follow up with primary care provider if symptoms not improved. Differential Diagnosis Differential diagnosis: Likely urinary tract infection, bacterial vaginosis and vaginitis Lab Data Labs: Lab Results 04/21/25 Range/Units 14:06 POC Urine Color Yellow POC Urine Clarity Clear POC Urine pH 5.0 POC Ur Specif [place] 1.010 POC Urine Protein Negative (Negative) POC Ur Glucose (UA) Negative (Negative) POC Urine Ketones Negative (Negative) POC Urine Blood Negative (Negative) POC Urine Nitrite Negative (Negative) POC Urine Bilirubin Negative (Negative) POC Urine Urobilinogen 0.2 POC U Leukocyte Esteras Negative (Negative) Critical Care Time Critical Care Time Critical Care Time: No Discharge Plan Discharge Clinical Impression: Urinary frequency Patient Disposition: Home Condition: Stable Instructions: Urinary Urgency and Frequency (DC) Additional Instructions: follow-up with primary care provider if symptoms not improved. We will call you if your urine culture is positive and an antibiotic is needed. Proceed to the emergency room if symptoms worsen Patient Language: [place] Citizen Prescriptions: No Action cholecalciferol (vitamin D3) 1,250 mcg (50,000 unit) capsule 1,250 mcg PO QMWF estradiol 1 mg tablet 1 mg PO DAILY Rx Instructions: off 1 week; repeat cycle omega-3 fatty acids 500 mg capsule 500 mg PO DAILY Complete Multivitamin Tablet 1 tablet PO DAILY thyroid (pork) 8 mg capsule 9 mg PO DAILY vitamin B complex [B Complex-Vitamin B12] Tablet 1 tablet PO DAILY Premarin 0.625 mg/gram cream 0.625 mg vaginal 2XW Qty: 30 4RF fluticasone propionate 50 mcg/actuation spray,suspension See Rx Instructions .ROUTE .COMPLEX Qty: 16 1RF Dose Instruction: SHAKE LIQUID AND USE 1 SPRAY IN EACH NOSTRIL TWICE DAILY Rx Instructions: SHAKE LIQUID AND USE 1 SPRAY IN EACH NOSTRIL TWICE DAILY albuterol sulfate 90 mcg/actuation HFA aerosol inhaler 2 inh inhalation Q4H PRN (Reason: shortness of breath or wheezing) Qty: 8.5 0RF Follow-up/Referrals: Yoli,BRENDA Sanders [Primary Care Provider, Unknown] Time of Disposition: 14:14
== END 2025-04-21 14:17 | disposition home or self-care (01) ==
PROVIDERS: Emergency Provider Nurse Practitioner Family; PCP Nurse Practitioner
DX: R35.0 Frequency of micturition (principal); E03.9 Hypothyroidism, unspecified; N80.9 Endometriosis, unspecified; M85.80 Other specified disorders of bone density and structure, unspecified site; Z86.16 Personal history of COVID-19
CPT/HCPCS: 81003; 87086; 99213; G0463